=== PATIENT | male | born 1965 | race Caucasian/White ===

== ENCOUNTER → 2019-05-04 | Outpatient (CLI) | payer OTHER ==
--- NOTE | 2019-05-04 11:26 | MR ---
EXAMINATION TYPE: MR cervical spine wo/w con DATE OF EXAM: 05/04/2019 COMPARISON: None HISTORY: Spondylosis without myelopathy or radiculopathy, cervical spine TECHNIQUE: Multiplanar, multisequence images of the cervical spine were acquired utilizing 9 mL intravenous Gada vist gadolinium contrast. Diffusion weighted imaging was performed. C2-C3: No evidence for degenerative disc disease. No disc bulge/herniation or protrusion. No Canal stenosis. Foramina are patent bilaterally. C3-C4: Posterior extension endplate disc complex causes mild anterior mass effect on the thecal sac. Bilateral uncovertebral joint hypertrophy noted causing bilateral foraminal encroachment left greater than right. There is associated facet arthropathy. C4-C5: Small posterior disc bulge causes minimal anterior mass effect on the thecal sac. There is giovana e mild foraminal encroachment present. Facet arthropathy changes also present causing foraminal encro achment. No significant spinal stenosis. C5-C6: Bilateral foraminal encroachment is present. Small disc bulge centrally causes slight anterior mass effect on the thecal sac. No significant spinal stenosis. There is associated facet arthropathy . C6-C7: No evidence for degenerative disc disease. No disc bulge/herniation or protrusion. No Canal stenosis. Foramina are patent bilaterally. C7-T1: No evidence for degenerative disc disease. No disc bulge/herniation or protrusion. No Canal stenosis. Foramina are patent bilaterally. Cervical segments are intact. There is normal alignment. Cervical spinal cord is showing some quest ionable hyperintensity and T2-weighted sequences at the C3 level, sagittal image #8, axial image #40 which is slightly different level on axial imaging, possibly artifact. Craniovertebral junction rela tionships are within normal limits. Inflammatory changes present within the maxillary sinus on the r ight. There is multilevel spondylosis. Cervical vertebral bodies show preserved height and alignment. Incre ased signal the inferior margin of the C6 vertebral body likely hemangioma. Loss of disc height signa l at intervertebral levels is compatible with disc desiccation and degenerative disc disease, there i s endplate discogenic marrow signal change. No abnormal enhancement following contrast administration . IMPRESSION: Degenerative disc disease as described. Multilevel foraminal encroachment, facet arthropathy. Questio nable abnormal signal, gliosis within the cervical cord, suspect probable artifact however.
== END | disposition home or self-care (01) ==
LOC: RADMRIMAIN 08:45
PROVIDERS: ATTEND Family Medicine
DX: M50.10 Cervical disc disorder with radiculopathy, unspecified cervical region (principal); M46.92 Unspecified inflammatory spondylopathy, cervical region
CPT/HCPCS: 72156; A9585

== ENCOUNTER 2020-08-04 12:49 | Inpatient (IN) | payer OTHER, BC ==
--- NOTE | 2020-08-04 13:17 | ED ---
General Adult HPI - General Chief complaint: Recheck/Abnormal Lab/Rx Stated complaint: abn labs Time Seen by Provider: 08/04/20 13:04 Source: patient, family, RN notes reviewed Mode of arrival: ambulatory Limitations: no limitations - History of Present Illness Initial comments: Patient is a pleasant 55-year-old male presenting to the emergency Department with complaints of anemia. Patient states he did have several episodes of diarrhea with black discoloration. Patient states this does seem to have improved. Patient has been having extreme fatigue and exertional dyspnea. No history of similar symptoms previously. Patient does normally drink beer, daily however has not since symptoms started. - Related Data Home Medications Medication Instructions Recorded Confirmed Albuterol Inhaler [Ventolin Hfa 1 - 2 puff INHALATION RT-QID PRN 08/04/20 08/04/20 Inhaler] Ergocalciferol [Vitamin D2 (1250 1,250 mcg PO BURDEN 08/04/20 08/04/20 Mcg = 08949 Iu)] Ibuprofen [Motrin] 800 mg PO QID PRN 08/04/20 08/04/20 Losartan Potassium 100 mg PO HS 08/04/20 08/04/20 Multivitamins, Thera [Multivitamin 1 tab PO DAILY 08/04/20 08/04/20 (formulary)] amLODIPine [Norvasc] 5 mg PO HS 08/04/20 08/04/20 Allergies Allergy/AdvReac Type Severity Reaction Status Date / Time No Known Allergies Allergy Verified 08/04/20 13:50 Review of Systems ROS Statement: Those systems with pertinent positive or pertinent negative responses have been documented in the HPI. ROS Other: All systems not noted in ROS Statement are negative. Constitutional: Denies: fever Eyes: Denies: eye pain ENT: Denies: ear pain Respiratory: Denies: cough Cardiovascular: Denies: chest pain Endocrine: Reports: fatigue Gastrointestinal: Reports: as per HPI. Denies: abdominal pain Genitourinary: Denies: dysuria Musculoskeletal: Denies: back pain Skin: Denies: rash Neurological: Denies: weakness Past Medical History Past Medical History: Hypertension History of Any Multi-Drug Resistant Organisms: None Reported Past Surgical History: No Surgical Hx Reported Past Psychological History: No Psychological Hx Reported Smoking Status: Current every day smoker Past Alcohol Use History: Daily Past Drug Use History: None Reported General Exam Limitations: no limitations General appearance: alert, in no apparent distress Head exam: Present: normocephalic Eye exam: Present: other (Pale conjunctiva) Neck exam: Present: normal inspection Respiratory exam: Present: normal lung sounds bilaterally Cardiovascular Exam: Present: regular rate, normal rhythm GI/Abdominal exam: Present: soft. Absent: distended, tenderness Extremities exam: Present: normal inspection. Absent: calf tenderness Neurological exam: Present: alert Psychiatric exam: Present: normal affect, normal mood Skin exam: Present: normal color Course Vital Signs 08/04/20 12:57 Temperature 98.0 F Pulse Rate 70 Respiratory 18 Rate Blood Pressure 122/68 O2 Sat by Pulse 98 Oximetry Medical Decision Making - Medical Decision Making Patient and family state they were told to come to the hospital for admission and [address] Conway has been paged for admission. Case was discussed with Dr. Conway who would like patient admitted with transfusion and GI consult. Patient and family are aware of plan. - Lab Data Lab Results 08/04/20 Range/Units 13:35 Blood Type Recheck No Previous Record Bld Type Recheck Status CABO Indicated Spec Expiration Date 08/07/2020 - 0 Disposition Clinical Impression: Lower GI hemorrhage Disposition: ADMITTED IP TO THIS HOSP Is patient prescribed a controlled substance at d/c from ED?: No Referrals: Randy Conway MD [Primary Care Provider] - 1-2 days Decision Time: 13:19
[2020-08-04] MEDS ORDERED: PANTOPRAZOLE 40 MG/10 ML VIAL IVP STA (13:18)
[2020-08-04] MEDS ORDERED: NALOXONE 0.4 MG/ML 1 ML VIAL IV PRN (14:02)
[2020-08-04 14:03] LABS: Prothrombin Time 10.3 sec (9.0-12.0)
[2020-08-04 14:30] LABS: Partial Thromboplastin Time 19.7 sec (22.0-30.0)
[2020-08-04] MEDS: SODIUM CHLORIDE 0.9% 1,000 ML IV SCH ×2 (20:53→23:56)
[2020-08-05] MEDS: SODIUM CHLORIDE 0.9% 1,000 ML IV SCH ×3 (08:45→22:40)
[2020-08-05] MEDS: PANTOPRAZOLE 40 MG/10 ML VIAL IV SCH (08:45)
[2020-08-05 08:58] LABS: African American GFR (CKD) >90 (>60 ml/min/1.73 sqM); Anion Gap 4 mmol/L; Anisocytosis Slight; Blood Urea Nitrogen 11 mg/dL (9-20); Calcium 8.1 mg/dL (8.4-10.2); Carbon Dioxide 27 mmol/L (22-30); Chloride 106 mmol/L (98-107); Glucose 102 mg/dL (74-99); HCT 20.1 % (39.0-53.0); Hypochromasia Marked; MCH 28.6 pg (25.0-35.0); MCHC 32.1 g/dL (31.0-37.0); MCV 88.9 fL (80.0-100.0); Mean Platelet Volume 7.4; Non-African American GFR(CKD) >90 (>60 ml/min/1.73 sqM); Platelet Count 498 k/uL (150-450); Poikilocytosis Marked; Potassium 5.2 mmol/L (3.5-5.1); RBC 2.26 m/uL (4.30-5.90); Sodium 137 mmol/L (137-145); WBC 5.6 k/uL (3.8-10.6)
[2020-08-05 09:02] LABS: HGB 6.4 gm/dL (13.0-17.5)
[2020-08-05 10:33] LABS: Albumin 3.1 g/dL (3.5-5.0); Bilirubin,Unconjugated 0.5 mg/dL (0.0-1.1); Total Bilirubin 0.4 mg/dL (0.2-1.3); Total Protein 5.5 g/dL (6.3-8.2)
[2020-08-05] MEDS ORDERED: IV FLUID CONTINUATION 1,000 ML IV ONE (12:55)
[2020-08-05] MEDS ORDERED: LIDOCAINE 1% INJ 10MG/ML (20 ML MDV) ONE (12:57)
[2020-08-05] MEDS ORDERED: PROPOFOL 10 MG/ML 20 ML VIAL IV ONE (12:57)
[2020-08-05] MEDS ORDERED: ALBUTEROL NEBULIZED 2.5 MG/3 ML INHALATION PRN (13:07)
[2020-08-05] MEDS ORDERED: IBUPROFEN 800 MG TAB PO PRN (13:07)
[2020-08-05 13:17] LABS: Eosinophils # (M) 0.56 k/uL (0-0.7); Lymphocytes # (M) 0.62 k/uL (1.0-4.8); Monocytes # (M) 0.39 k/uL (0-1.0); Neutrophils # (M) 4.03 k/uL (1.3-7.7); Neutrophils % (M) 72 %; Nucleated Red Blood Cells 0 /100 WBC (0-0); Total Cells Counted 100
[2020-08-05 13:19] LABS: Polychromasia Present
--- NOTE | 2020-08-05 13:20 | P.CONS ---
History of Present Illness - Reason for Consult Consult date: 08/05/20 GI bleed, anemia Requesting physician: Randy Conway - Chief Complaint Anemia, diarrhea, melena - History of Present Illness 55-year-old male with a medical history significant for hypertension and osteoarthritis who presented to the hospital for evaluation of anemia. The patient reports that prior to presentation he has seen intermittent episodes of dark-colored stool before coming to the hospital he had multiple episodes of loose lack tarry bowel movements. He reports associated weakness and fatigue. He does take ibuprofen daily. He denies any history of peptic ulcer disease. He is never had an EGD or colonoscopy in the past. He denies any abdominal pain. He denies any nausea or vomiting. She does report alcohol consumption with beer frequently. He denies any bright red blood per rectum or episodes of hematemesis or coffee-ground emesis. The patient is not on any blood thinner therapy. Review of Systems REVIEW OF SYSTEMS: CONSTITUTIONAL: Denies any fevers, chills, weight change but he did report some fatigue and weakness CARDIOVASCULAR: Denies any chest pain, palpitations high or low blood pressures RESPIRATORY: Denies any shortness of breath, hemoptysis or cough. GENITOURINARY: No dysuria or hematuria. MUSCULOSKELETAL: No weakness reported. SKIN: Denies any new rashes or lesions, jaundice or pallor. PSYCHIATRIC: Denies any depression or anxiety. NEUROLOGY: Denies headache, denies any new focal deficits. EARS/NOSE/THROAT: No recent hearing change, congestion, nasal discharge or sore throat. EYES: No pain in eyes, discharge or change in vision. GASTROINTESTINAL: As per HPI. Past Medical History Past Medical History: Hypertension History of Any Multi-Drug Resistant Organisms: None Reported Past Surgical History: No Surgical Hx Reported Past Anesthesia/Blood Transfusion Reactions: No Reported Reaction Past Psychological History: No Psychological Hx Reported Smoking Status: Current every day smoker Past Alcohol Use History: Daily Past Drug Use History: None Reported Additional History: Family history: Reviewed with the patient will be treated for medical presentation. Medications and Allergies Home Medications Medication Instructions Recorded Confirmed Type Albuterol Inhaler [Ventolin Hfa 1 - 2 puff INHALATION RT-QID PRN 08/04/20 08/04/20 History Inhaler] Ergocalciferol [Vitamin D2 (1250 1,250 mcg PO BURDEN 08/04/20 08/04/20 History Mcg = 41683 Iu)] Ibuprofen [Motrin] 800 mg PO QID PRN 08/04/20 08/04/20 History Losartan Potassium 100 mg PO HS 08/04/20 08/04/20 History Multivitamins, Thera [Multivitamin 1 tab PO DAILY 08/04/20 08/04/20 History (formulary)] amLODIPine [Norvasc] 5 mg PO HS 08/04/20 08/04/20 History Allergies Allergy/AdvReac Type Severity Reaction Status Date / Time No Known Allergies Allergy Verified 08/04/20 13:50 Physical Exam Vitals: Vital Signs Temp Pulse Pulse Resp BP BP Pulse Ox 08/05/20 12:32 98.4 F 57 L 130/70 08/05/20 12:10 98.3 F 58 L 127/66 97 08/05/20 12:02 98.3 F 58 L 127/66 97 08/05/20 11:52 98.4 F 08/05/20 08:00 98.1 F 70 127/68 97 08/05/20 04:00 73 18 114/66 95 08/04/20 23:42 98.3 F 71 18 139/78 98 08/04/20 20:51 98.4 F 66 16 126/66 97 08/04/20 20:10 98.6 F 68 16 128/71 08/04/20 19:00 98.7 F 67 16 123/78 98 08/04/20 18:19 97.9 F 103 H 18 122/79 98 08/04/20 18:12 98.6 F 64 18 119/75 98 08/04/20 17:49 98 F 102 H 16 119/80 98 08/04/20 17:40 98.5 F 65 21 137/79 100 08/04/20 17:23 98.5 F 66 18 136/72 08/04/20 17:22 98.6 F 77 18 129/72 08/04/20 16:45 98.6 F 64 18 145/71 98 08/04/20 15:40 98.7 F 67 20 146/69 100 08/04/20 15:10 98.2 F 64 23 141/74 99 08/04/20 14:59 98.2 F 64 18 141/75 08/04/20 14:55 98.2 F 66 18 152/74 Intake and Output 08/04/20 08/05/20 08/05/20 22:59 06:59 14:59 Intake Total 620 0 Balance 620 0 Intake: Oral 0 Blood Product 620 0 Rc As-1 Unit 0 [id number] Rc Pheresis As-3 Unit 310 [id number] Rc Pheresis As-3 Unit 310 [id number] Other: Weight 77.5 kg On physical examination, patient appears comfortable in no apparent distress. HEAD: Normocephalic, atraumatic. EYES: No scleral icterus. No conjunctival injection. MOUTH: No lesions, tongue midline. NECK: Trachea midline, no gross abnormalities. CHEST: Clear to auscultation with no wheezing or rhonchi appreciated. HEART: Regular rate and rhythm. ABDOMEN: Soft, nontender to palpation. Bowel sounds are positive. No organomegaly. No guarding or rigidity. EXTREMITIES: No pedal edema. SKIN: No rashes, no jaundice. NEUROLOGIC: Alert and oriented x3. No focal deficits. Results CBC & Chem 7: 08/05/20 08:00 08/05/20 08:00 Labs: Abnormal Lab Results - Last 24 Hours (Table) 08/04/20 08/04/20 08/05/20 Range/Units 13:35 13:38 08:00 RBC 2.26 L (4.30-5.90) m/uL Hgb 6.4 L* (13.0-17.5) gm/dL Hct 20.1 L (39.0-53.0) % RDW 17.0 H (11.5-15.5) % Plt Count 498 H (150-450) k/uL APTT 19.7 L (22.0-30.0) sec Potassium (3.5-5.1) mmol/L Glucose (74-99) mg/dL Calcium (8.4-10.2) mg/dL Total Protein (6.3-8.2) g/dL Albumin (3.5-5.0) g/dL Crossmatch See Detail 08/05/20 08/05/20 Range/Units 08:00 08:00 RBC (4.30-5.90) m/uL Hgb (13.0-17.5) gm/dL Hct (39.0-53.0) % RDW (11.5-15.5) % Plt Count (150-450) k/uL APTT (22.0-30.0) sec Potassium 5.2 H (3.5-5.1) mmol/L Glucose 102 H (74-99) mg/dL Calcium 8.1 L (8.4-10.2) mg/dL Total Protein 5.5 L (6.3-8.2) g/dL Albumin 3.1 L (3.5-5.0) g/dL Crossmatch Assessment and Plan (1) Melena Narrative/Plan: 55-year-old male presenting with complaints of anemia, melena and diarrhea. Multiple black colored bowel movements. Long-standing history of daily NSAID use, with ibuprofen at least once daily. No history of peptic ulcer disease. No prior EGD or colonoscopy. Unclear etiology, differential includes peptic ulcer disease, gastritis, esophagitis or other etiology. Current Visit: Yes Status: Acute Code(s): K92.1 - MELENA SNOMED Code(s): 7211677 (2) Anemia associated with acute blood loss Current Visit: Yes Status: Acute Code(s): D62 - ACUTE POSTHEMORRHAGIC ANEMIA SNOMED Code(s): 897786443 Plan: Supportive care Nothing by mouth Continue to monitor hemoglobin and hematocrit and transfuse as needed Protonix IV twice daily Avoid NSAID use, extensive discussion with the patient and his regarding the need to avoid NSAID medications and for use of alternative such as acetaminophen Plan for emergent EGD for further evaluation with all the risks, benefits and possible consultations explain to the patient length of QUESTIONS answered to his satisfaction Thank you for allowing us to participate in the care of the patient
--- NOTE | 2020-08-05 13:24 | P.PCN ---
Date of Procedure: 08/05/20 Description of Procedure: BRIEF HISTORY: 55-year-old male with a medical history significant for hypertension and osteoarthritis who presented to the hospital for evaluation of anemia. The patient reports that prior to presentation he has seen intermittent episodes of dark-colored stool before coming to the hospital he had multiple episodes of loose lack tarry bowel movements. He reports associated weakness and fatigue. He does take ibuprofen daily. He denies any history of peptic ulcer disease. He is never had an EGD or colonoscopy in the past. He denies any abdominal pain. He denies any nausea or vomiting. He does report alcohol consumption with beer frequently. He denies any bright red blood per rectum or episodes of hematemesis or coffee-ground emesis. The patient is not on any blood thinner therapy. PROCEDURE PERFORMED: Esophagogastroduodenoscopy. PREOPERATIVE DIAGNOSIS: Melena, anemia of acute blood loss. ESTIMATED BLOOD LOSS: Minimal. IV sedation per anesthesia. PROCEDURE: After informed consent was obtained, the patient was brought into the endoscopy unit. IV sedation was administered by Anesthesia under continuous monitoring. Initially the Olympus GIF-190 video endoscope was inserted into the mouth. Esophagus intubated without any difficulty. It was gradually advanced into the stomach and duodenum and carefully examined. The bulb and the second part of the duodenum appeared normal, except for a 7 mm cratered nonbleeding duodenal ulcer in the duodenal sweep without any high risk stigmata for bleeding. The scope at this time was withdrawn to the stomach, adequately insufflated with air, and upon careful examination, mucosa of the antrum, body, cardia and the fundus appeared normal, except for some mild scattered erythema in the antrum and body suggestive of mild gastritis. The scope was then withdrawn into the esophagus. The GE junction was located at 39 cm from the incisors, with a 1 cm small hiatal hernia. The esophagus appeared normal. There were no erosions or ulcerations seen and the patient tolerated the procedure well. IMPRESSION: 1. Nonbleeding duodenal ulcer in the duodenal sweep, no high risk stigmata for bleeding. 2. Or iritis. 3. Small hiatal hernia. RECOMMENDATIONS: The findings of this examination were discussed with the patient and his . Okay to resume liquid diet tonight. Continue to monitor hemoglobin and hematocrit and transfuse as needed. Continue to avoid NSAID therapy including ibuprofen. Continue twice daily PPI therapy.
--- NOTE | 2020-08-05 18:29 | PN ---
PROGRESS NOTE DATE OF SERVICE: 08/05/2020 CHIEF COMPLAINT: Anemia. HISTORY OF PRESENT ILLNESS: This gentleman is feeling fine. He has had no abdominal pain, nausea, vomiting, hematemesis, melena, etc. He is being assessed by Gastroenterology. PHYSICAL EXAMINATION: His chest is clear. Cardiac exam is normal. Abdomen is soft, nontender. IMPRESSION: 1. Blood-loss anemia. 2. Probable upper gastrointestinal source of bleeding. 3. Hypertension. PLAN: Upper GI endoscopy. MMODL / IJN: [id number] /
--- NOTE | 2020-08-05 18:34 | HP ---
HISTORY AND PHYSICAL CHIEF COMPLAINT: Shortness of breath. 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 He came to the office stating that he had been feeling short of breath and was having difficulty ambulating. At that time, he gave a history that he had some black stool for several days, but by the time he got to the office, this had stopped and stool color returned to normal. Blood work was obtained and the lab called back that his hemoglobin was 4. He could not be reached on the weekend, but on Tuesday morning, he was told to come in where his hemoglobin had gone up to over 5. He has had no chest pain, syncope, etc. He has never had a problem like this in the past. REVIEW OF SYSTEMS: He has had some palpitation with exertion, but no chest pain or shortness of breath at rest. He has had no abdominal pain, nausea, vomiting, hematemesis, hematochezia, jaundice, etc. He has had no urinary complaints. Past medical history, family history, personal and social histories reveal that he is not allergic to any medication. He takes losartan 100 mg once a day and amlodipine 10 mg once a day. He does use Motrin 800 mg q.i.d. frequently. He does smoke. He does not drink. PHYSICAL EXAMINATION: Blood pressure is 110/56 with a pulse of 91, respirations of 33. He is afebrile. In general, he appeared to be well developed, well nourished, in no acute distress. Skin color is normal skin is warm, dry. Lymph nodes are not enlarged. Head, ears, eyes, nose, mouth and throat were normal. Neck veins not distended. Thyroid not enlarged. Chest is clear. Cardiac exam is normal. Abdomen is soft, nontender. Extremities are normal. IMPRESSION: 1. Anemia. 2. Probable gastrointestinal blood loss. 3. History of hypertension. PLAN: 1. Bedrest. 2. Transfuse. 3. Consult with Gastroenterology for upper GI endoscopy. MMODL / IJN: [id number] /
[2020-08-05] MEDS ORDERED: amLODIPine 5 MG TAB PO SCH (21:00)
[2020-08-05] MEDS ORDERED: LOSARTAN 50 MG TAB PO SCH (21:00)
[2020-08-06] MEDS ORDERED: MULTIVITAMINS, THERA 1 EACH TAB PO SCH (09:00)
[2020-08-06 09:07] LABS: Anisocytosis Slight; Basophils % (A) 1 %; Eosinophils # (A) 0.5 k/uL (0-0.7); Eosinophils % (A) 8 %; Hypochromasia Marked; Lymphocytes % (A) 16 %; MCH 29.1 pg (25.0-35.0); MCV 88.2 fL (80.0-100.0); Mean Platelet Volume 7.2; Monocytes # (A) 0.7 k/uL (0-1.0); Monocytes % (A) 10 %; Neutrophils % (A) 62 %; Platelet Count 439 k/uL (150-450); Poikilocytosis Marked; RBC 2.72 m/uL (4.30-5.90); RDW 17.3 % (11.5-15.5); WBC 6.5 k/uL (3.8-10.6)
[2020-08-06 09:33] LABS: HGB 7.9 gm/dL (13.0-17.5)
[2020-08-06] MEDS: PANTOPRAZOLE 40 MG/10 ML VIAL IV SCH (10:14)
[2020-08-06] MEDS: SODIUM CHLORIDE 0.9% 1,000 ML IV SCH ×2 (10:15→17:45)
[2020-08-06 11:14] VITALS: RESP 16
--- NOTE | 2020-08-06 12:00 | P.PN ---
Subjective Progress Note Date: 08/06/20 Principal diagnosis: GI bleed Patient seen and examined sitting up in bed. He has been on a clear liquid diet and tolerating that well. He is status post upper endoscopy yesterday with findings of a nonbleeding duodenal ulcer without stigmata for bleeding, mild gastritis. Today he denies any abdominal pain, nausea, or vomiting. He had a bowel movement which he states was normal in color. His hemoglobin is stable at 7.9. Objective - Vital Signs Vital signs: Vital Signs Temp 97.8 F 08/06/20 04:00 Pulse 59 L 08/06/20 04:00 Resp 17 08/06/20 04:00 BP 123/72 08/06/20 04:00 Pulse Ox 97 08/06/20 04:00 Intake & Output 08/05/20 08/06/20 08/06/20 18:59 06:59 18:59 Intake Total 2214 810 480 Balance 2214 810 480 Weight 98.9 kg Intake: Intake, IV Titration 500 Amount Sodium Chloride 0.9% 1, 500 000 ml @ 125 mls/hr IV . Q8H [facility] Rx#:[id number] Oral 1594 480 Blood Product 620 310 Rc As-1 Unit 310 [id number] Rc As-1 Unit 0 310 [id number] Other: Voiding Method Urinal # Voids 2 1 - Exam General appearance: The patient is alert, oriented, appears in no acute distress. HET: Head is normocephalic and atraumatic. Conjunctiva pink. Sclera anicteric. Neck: Supple without lymphadenopathy. Abdomen: Soft, nontender, nondistended with bowel sounds. No guarding or rigidity. Extremities: Normal skin color and turgor. No pedal edema Skin: No rashes, no jaundice Neurological: No focal deficits. Alert and oriented 3. - Labs CBC & Chem 7: 08/06/20 07:27 08/05/20 08:00 Labs: Abnormal Lab Results - Last 24 Hours (Table) 08/04/20 08/05/20 08/05/20 Range/Units 13:35 08:00 08:00 RBC (4.30-5.90) m/uL Hgb (13.0-17.5) gm/dL Hct (39.0-53.0) % RDW (11.5-15.5) % Lymphocytes # (Manual) 0.62 L (1.0-4.8) k/uL Total Protein 5.5 L (6.3-8.2) g/dL Albumin 3.1 L (3.5-5.0) g/dL Crossmatch See Detail 08/06/20 Range/Units 07:27 RBC 2.72 L (4.30-5.90) m/uL Hgb 7.9 L D (13.0-17.5) gm/dL Hct 24.0 L (39.0-53.0) % RDW 17.3 H (11.5-15.5) % Lymphocytes # (Manual) (1.0-4.8) k/uL Total Protein (6.3-8.2) g/dL Albumin (3.5-5.0) g/dL Crossmatch Assessment and Plan (1) Melena Narrative/Plan: 55-year-old male presenting with complaints of anemia, melena and diarrhea. Multiple black colored bowel movements. Long-standing history of daily NSAID use, with ibuprofen at least once daily. No history of peptic ulcer disease. No prior EGD or colonoscopy. Unclear etiology, differential includes peptic ulcer disease, gastritis, esophagitis or other etiology. Current Visit: Yes Status: Acute Code(s): K92.1 - MELENA SNOMED Code(s): 6838622 (2) Anemia associated with acute blood loss Current Visit: Yes Status: Acute Code(s): D62 - ACUTE POSTHEMORRHAGIC ANEMIA SNOMED Code(s): 493473507 Plan: Supportive care Advance to regular diet Continue to monitor hemoglobin and hematocrit and transfuse as needed Protonix IV twice daily for discharge home on Protonix 40 mg by mouth twice a day Avoid NSAID use, extensive discussion with the patient and his regarding the need to avoid NSAID medications and for use of alternative such as acetaminophen Patient may be discharged home from a gastroenterology standpoint, follow-up in 2-3 weeks Thank you for this consultation, we will continue to follow Dr. Pineda I agree with the dictator's note, documented as a scribe by Sheba Becker.
[2020-08-06] MEDS ORDERED: SUCRALFATE 1 GM TAB PO SCH ×2 (12:30)
[2020-08-06 17:22] VITALS: BP 130/72; PULSE 64; TEMP 97.6
[2020-08-06] MEDS ORDERED: FAMOTIDINE 20 MG TAB PO SCH (21:00)
--- NOTE | 2020-08-06 22:40 | DS ---
DISCHARGE SUMMARY CHIEF COMPLAINT: Blood-loss anemia. HISTORY OF PRESENT ILLNESS AND PHYSICAL EXAMINATION: Details of this man's history and physical can be found in the initial workup. LABORATORY STUDIES: While he was in the hospital he had laboratory studies, details of which can be found in the laboratory section of his chart. COURSE IN THE HOSPITAL: After admission he was placed on bedrest and started on intravenous fluids and seen by Gastroenterology. He was transfused. He had no further evident bleeding. On upper GI endoscopy he was found to have a non-bleeding duodenal ulcer. It was felt that he could go home on August 06, and he will go home on light activity and he will not return to work right away. He will go home on Protonix 40 mg once a day, Pepcid 20 mg once a day, and Carafate 1 gram 4 times a day. He will be seen in the office in several days. FINAL DIAGNOSES: 1. Upper gastrointestinal hemorrhage. 2. Blood-loss anemia. 3. Duodenal peptic ulcer disease. OPERATION: Endoscopy. CONSULTATION: Gastroenterology. He is improved. MMANISH / VYN: [id number] /
[2020-08-07] MEDS ORDERED: PANTOPRAZOLE 40 MG TABLET PO SCH (07:30)
[2020-08-10] MEDS ORDERED: ERGOCALCIFEROL 1,250 MCG (50,000 IU) CAPSULE PO SCH (09:00)
== END 2020-08-06 18:26 | disposition home or self-care (01) | DRG 378 ==
LOC: EC 12:49 → 3SCARD 14:16
PROVIDERS: ADMIT Family Medicine; ATTEND Family Medicine
PROC: 0DJ08ZZ Inspection of Upper Intestinal Tract, Via Natural or Artificial Opening Endoscopic (ICD-10-PCS; principal; 2020-08-05 07:30)
DX: K92.2 Gastrointestinal hemorrhage, unspecified (principal); D62 Acute posthemorrhagic anemia; K26.7 Chronic duodenal ulcer without hemorrhage or perforation; I10 Essential (primary) hypertension; K44.9 Diaphragmatic hernia without obstruction or gangrene; K92.1 Melena; R19.7 Diarrhea, unspecified; F17.200 Nicotine dependence, unspecified, uncomplicated; Z79.899 Other long term (current) drug therapy; Z20.822 Contact with and (suspected) exposure to COVID-19
CPT/HCPCS: 36415; 43235; 80048; 80076; 85025; 85610; 85730; 86850; 86900; 86901; 86920; 87636; 96374; 99285

== ENCOUNTER → 2020-08-04 | Outpatient (CLI) | payer OTHER, BC ==
[2020-08-04 11:24] LABS: Anisocytosis Slight; Basophils % (A) 0 %; Eosinophils # (A) 0.4 k/uL (0-0.7); Eosinophils % (A) 5 %; Hypochromasia Marked; Lymphocytes % (A) 13 %; MCH 27.1 pg (25.0-35.0); MCHC 30.7 g/dL (31.0-37.0); MCV 88.2 fL (80.0-100.0); Mean Platelet Volume 7.5; Monocytes # (A) 0.6 k/uL (0-1.0); Monocytes % (A) 8 %; Neutrophils # (A) 5.6 k/uL (1.3-7.7); Neutrophils % (A) 72 %; Platelet Count 564 k/uL (150-450); Poikilocytosis Marked; RBC 2.04 m/uL (4.30-5.90); RDW 16.9 % (11.5-15.5); WBC 7.9 k/uL (3.8-10.6)
[2020-08-04 11:33] LABS: HGB 5.5 gm/dL (13.0-17.5)
== END | disposition home or self-care (01) ==
LOC: LABWHC1 10:45
PROVIDERS: ATTEND Family Medicine
DX: D64.9 Anemia, unspecified (principal)
CPT/HCPCS: 36415; 85025